=== PATIENT | female | born 1950 | race Caucasian/White ===

== ENCOUNTER 2025-03-06 21:50 | Emergency (ER) | payer MEDICARE, MEDICAID, SELFPAY ==
[2025-03-06 22:18] VITALS: BP 147/71; PULSE 62; RESP 18; TEMP 36.9; O2SAT 99
[2025-03-07 00:37] LABS: Basophils # 0.1 10^3/uL (0.0-0.1); Basophils % 0.7 %; Eosinophils # 0.1 10^3/uL (0.0-0.8); Eosinophils % 1.1 %; Hematocrit 41.4 % (36-47); Lymphocytes # 1.9 10^3/uL (0.8-4.8); Lymphocytes % 19.7 %; Mean Corpuscular HGB Conc 32.1 g/dL (30-55); Mean Corpuscular Hemoglobin 30.6 pg (27-33); Mean Corpuscular Volume 95.4 fl (85-98); Mean Platelet Volume 9.2 fL (7.4-10.4); Monocytes # 0.7 10^3/uL (0.2-0.9); Monocytes % 7.5 %; Neutrophils # 6.96 10^3/uL (1.8-7.7); Neutrophils % 70.5 %; Nucleated Red Blood Cells % 0 %; Platelet Count 327 10^3/cmm (157-399); Red Blood Count 4.34 10^6/uL (3.85-5.65); Red Cell Distribution Width 15.4 % (12.1-15.1); White Blood Count 9.87 10^3/uL (3.29-11.43)
--- NOTE | 2025-03-07 00:38 | XRR_ITS ---
PROCEDURE INFORMATION: Exam: XR Chest Exam date and time: 03/07/2025 12:50 AM Age: 75 years old Clinical indication: Shortness of breath; Prior surgery; Surgery date: 6+ months; Surgery type: Gb; C/O SOB. History of copd. TECHNIQUE: Imaging protocol: Radiologic exam of the chest. Views: 1 view. COMPARISON: CR XR chest 1V [id number] 10/19/2018 1:25 PM FINDINGS: Lungs: Unremarkable. No consolidation. Pleural spaces: Unremarkable. No pleural effusion. No pneumothorax. Heart/Mediastinum: Unremarkable. No cardiomegaly. Bones/joints: No fractures. 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 XR/XR chest 1V portable [id number] IMPRESSION: No acute findings.
[2025-03-07 00:42] LABS: Bacteria Urine None Seen /hpf; Hyaline Casts Urine 0-4 /lpf; RBC Urine 0-2 /hpf (0-2); Squamous Epithelial Cell Urine 0-5 /hpf (0-5); WBC Urine 0-5 /hpf (0-5)
[2025-03-07 00:55] VITALS: BP 169/84; PULSE 69; RESP 18; O2SAT 95
[2025-03-07 00:56] LABS: Add Urine Microscopic? YES; Bilirubin Urine Negative (Negative); Blood Urine Negative (Negative); Glucose Urine UA Negative (Normal); Ketones Urine Negative (Negative); Leukocyte Esterase Urine Trace (Negative); Nitrate Urine Negative (Negative); Protein Urine 1+ (Negative); Specific Gravity, Urine 1.018 (1.005-1.030); Urine Appearance Cloudy (CLEAR); Urine Color Yellow (Yellow); pH Urine 6.5 (5-7)
[2025-03-07 00:56] LABS: Alanine Aminotransferase 8 U/L (0-33); Alkaline Phosphatase 141 U/L (35-105); Anion Gap 13.1 (5-19); Aspartate Amino Transferase 13 U/L (0-32); Blood Urea Nitrogen 10 mg/dL (8-23); Calcium 9.9 mg/dL (8.5-10.5); Carbon Dioxide 22 mmol/L (22-29); Chloride 107 mmol/L (98-107); Creatinine Clr Calc Pharmacy 88.3556; Globulin 2.8 g/dL (1.3-4.6); Glucose 88 mg/dL (65-115); Osmolality Calculated 286 mOsm/kg (285-295); Potassium 3.1 mmol/L (3.5-5.1); Sodium 139 mmol/L (136-145); Total Bilirubin 0.4 mg/dL (0.15-1.2); Total Protein 6.8 g/dL (6.6-8.7)
--- NOTE | 2025-03-07 00:59 | W.ED.SOB ---
HPI - SOB/Dyspnea General: Chief Complaint: Shortness of Breath/Dyspnea Stated Complaint: LLQ Pain/ Back pain Time Seen by Provider: 03/07/25 00:38 Source: patient Mode of arrival: EMS Limitations: no limitations History of Present Illness: HPI Narrative: Patient is a 75-year-old female presents to ED today with 2 separate complaints. First of all she states my breathing is shot . States she has chronic COPD. She does not required oxygen. She has 2 different inhalers that she uses at home. She states over the past few days she has had increased cough and wheezing. She continues to smoke daily and has no intention of quitting. She is not having any chest pain. Her other complaint is some urinary incontinence. She reportedly started having loss a few weeks ago. She was told at some point that she had bacteria in her urine and was treated with antibiotics. She was also having some burning at that time but that has since subsided. She is not complaining of back pain. No recent injury or trauma. MD elicited complaint: shortness of breath Pertinent past history: COPD Onset (ago): day(s) Timing: constant Severity: moderate Relieving factors: nothing Known history of: COPD Associated symptoms: Reports chest congestion; Deny abdominal pain, chest pain, extremity pain, fever(s), hemoptysis or vomiting Treatment prior to arrival: none Related Data Home Medications ?Medication ?Instructions ?Recorded ?Confirmed cholecalciferol (vitamin D3) 25 25 mcg PO DAILY 06/18/21 09/22/24 mcg (1,000 unit) capsule diazepam 2 mg tablet 2 mg PO BID PRN 06/18/21 09/22/24 hydrochlorothiazide 50 mg tablet 50 mg PO DAILY 06/18/21 09/22/24 loratadine 10 mg tablet (Claritin) 10 mg PO DAILY 06/18/21 09/22/24 tramadol 50 mg tablet 50 mg PO Q6H PRN 06/18/21 09/22/24 ketotifen fumarate 0.025 % (0.035 1 drp ophthalmic (eye) BID 07/15/24 09/22/24 %) eye drops (Zaditor) Previous Rx's ?Medication ?Instructions ?Recorded budesonide 160 mcg-glycopyr 9 See Rx Instructions .Route 01/17/25 mcg-formot 4.8 mcg/actuation HFA .COMPLEX #10.7 grams inhaler (Breztri Aerosphere) metoprolol succinate 100 mg See Rx Instructions .Route 01/24/25 tablet,extended release 24 hr .COMPLEX #30 tabs esomeprazole magnesium 20 mg See Rx Instructions .Route 01/31/25 capsule,delayed release .COMPLEX #30 caps doxycycline monohydrate 100 mg 100 mg PO Q12H 10 days #20 caps 03/07/25 capsule prednisone 10 mg tablet 10 mg PO DAILY 6 days #20 tabs 03/07/25 Allergies Allergy/AdvReac Type Severity Reaction Status Date / Time MASOOD Inhibitors Allergy Severe Unknown Verified 03/06/25 22:25 Quinolones Allergy Mild Unknown Verified 03/06/25 22:25 Review of Systems Const: Denies: fever(s), chills, body aches, fatigue or malaise Card: Denies: chest pain Resp: Reports: dyspnea, productive cough, chest congestion and other (wheezing); Denies: hemoptysis GI: Denies: abdominal pain, vomiting or diarrhea : Reports: urinary incontinence; Denies: flank pain, difficulty voiding, dysuria, urinary frequency, urinary urgency or urinary hesitancy Musc: Denies: neck pain, back pain or extremity pain Skin/Breast: Denies: rash Neuro: Denies: headache(s) PFSH ED PFSH: Medical History Atrial fibrillation COPD (chronic obstructive pulmonary disease) Hypertension Hyperlipidemia Surgical History H/O shoulder surgery Hx of appendectomy History of cholecystectomy Tubal ligation status Family History Mother Diabetes Father Diabetes Brother Stroke Social History Smoking and tobacco/nicotine status: former use of tobacco/nicotine Quit status (tobacco/nicotine): not considering quitting Second hand smoke exposure: No Alcohol intake: never Substance/Drug Use: never Physical Exam Const: COMMON NORMALS: patient oriented x3, no limitations, alert and well nourished GENERAL APPEARANCE: cooperative NUTRITIONAL APPEARANCE: obese ORIENTATION/CONSCIOUSNESS: Yes awake, Yes oriented to person, Yes oriented to place and Yes oriented to time HENMT: COMMON NORMALS: normocephalic and atraumatic HEAD & SCALP: normal to inspection, normocephalic and atraumatic Eye: GENERAL EYE: appearance normal, both eyes and all related structures Neck/C-Spine: COMMON NORMALS: no lymphadenopathy GENERAL: Yes normal visual inspection Chest: COMMONS NORMALS: normal inspection of the chest and normal palpation of entire chest wall Resp: COMMON NORMALS: normal respiratory effort AUSCULTATION: wheezes Cardio: COMMON NORMALS: regular rate and regular rhythm RATE: regular rate RHYTHM: regular rhythm GI: COMMON NORMALS: Normal to inspection, nondistended, normoactive bowel sounds present, Soft to palpation and non-tender PALPATION: Yes Soft to palpation Back/Pelvis: COMMON NORMALS: thoracic and lumbar spine normal to inspection, no thoracic nor lumbar tenderness, thoraco-lumbar ROM normal and straight leg raise negative bilaterally Extremity: NARRATIVE EXTREMITY EXAM: mild LE [id number] been told she might benefit from water pill but states she already has a hard time getting to the bathroom and has declined these in the past Neuro: COMMON NORMALS: patient oriented x3, moves all extremities, no focal motor deficits and no sensory deficits noted SENSORIUM/ORIENTATION: Yes alert, Yes oriented to person, Yes oriented to place and Yes oriented to time Skin: COMMON NORMALS: no rashes or lesions noted GENERAL SKIN EXAM: no rashes or lesions noted Course Vital Signs: Vital signs: Vital Signs Temperature 98.4 F 03/06/25 22:18 Pulse Rate 62 03/06/25 22:18 Respiratory Rate 18 03/06/25 22:18 Blood Pressure 147/71 03/06/25 22:18 Pulse Oximetry 99 03/06/25 22:18 Oxygen Delivery Me thod Room Air 03/06/25 22:18 MDM - SOB/Dyspnea Medical Decision Making Patient clinically appears no acute distress. Her vital signs are stable. She is not tachycardic, febrile, or hypoxic. CXR showing no acute findings. Her white count is normal. At this time patient does not require hospitalization. She appears improved after IV Solu-Medrol and DuoNeb breathing treatment. I will call her in antibiotics and steroids for treatment of a COPD exacerbation. Discussed following up with her primary care provider in regards to her urinary incontinence and discussed possible urology referral. Differential Diagnosis Likely acute exacerbation of chronic obstructive airways disease Medical Records I reviewed the patient's medical records. Lab Data I reviewed the patient's lab results. 03/06/25 00:30 03/06/25 00:30 Labs/Radiology: Radiology Impressions Chest X-Ray 03/07/25 00:38 IMPRESSION: No acute findings. Laboratory Results WBC 9.87 10^3/uL (3.29-11.43) 03/06/25 00:30 RBC 4.34 10^6/uL (3.85-5.65) 03/06/25 00:30 Hgb 13.30 g/dL (11.27-16.99) 03/06/25 00:30 Hct 41.4 % (36-47) 03/06/25 00:30 MCV 95.4 fl (85-98) 03/06/25 00:30 MCH 30.6 pg (27-33) 03/06/25 00:30 MCHC 32.1 g/dL (30-55) 03/06/25 00:30 RDW 15.4 % (12.1-15.1) H 03/06/25 00:30 Plt Count 327 10^3/cmm (157-399) 03/06/25 00:30 MPV 9.2 fL (7.4-10.4) 03/06/25 00:30 Neut % (Auto) 70.5 % 03/06/25 00:30 Lymph % (Auto) 19.7 % 03/06/25 00:30 [place] % (Auto) 7.5 % 03/06/25 00:30 Eos % (Auto) 1.1 % 03/06/25 00: Baso % (Auto) 0.7 % 03/06/25 00:30 Neut # (Auto) 6.96 10^3/uL (1.8-7.7) 03/06/25 00:30 Lymph # (Auto) 1.9 10^3/uL (0.8-4.8) 03/06/25 00:30 [place] # (Auto) 0.7 10^3/uL (0.2-0.9) 03/06/25 00:30 Eos # (Auto) 0.1 10^3/uL (0.0-0.8) 03/06/25 00:30 Baso # (Auto) 0.1 10^3/uL (0.0-0.1) 03/06/25 Nucleated RBC % (auto) 0 % 03/06/25 Nucleated RBCs # 0.0 /100WBC 03/06/25 Sodium 139 mmol/L (136-145) 03/06/25 00: Potassium 3.1 mmol/L (3.5-5.1) L 03/06/25 Chloride 107 mmol/L (98-107) 03/06/25 Carbon Dioxide 22 mmol/L (22-29) 03/06/25 Anion Gap 13.1 (5-19) 03/06/25 BUN 10 mg/dL (8-23) 03/06/25 Creatinine 0.8 mg/dL (0.5-0.9) 03/06/25 GFR Calculation Not Reportable 03/06/25 Glucose 88 mg/dL (65-115) 03/06/25 Calculated Osmolality 286 mOsm/kg (285-295) 03/06/25 Calcium 9.9 mg/dL (8.5-10.5) 03/06/25 Total Bilirubin 0.4 mg/dL (0.15-1.2) 03/06/25 AST 13 U/L (0-32) 03/06/25 ALT 8 U/L (0-33) 03/06/25 Alkaline Phosphatase 141 U/L (35-105) H 03/06/25 NT-Pro-B Natriuret Pep 667 pg/mL (0-125) H 03/07/25: Total Protein 6.8 g/dL (6.6-8.7) 03/06/25: Albumin 4.0 g/dL (3.5-5.2) 03/06/25 Globulin 2.8 g/dL (1.3-4.6) 03/06/25 00: Urine Color Yellow (Yellow) 03/07/25 Urine Appearance Cloudy (CLEAR) A 03/07/25: Urine pH 6.5 (5-7) 03/07/25 Ur Specific [place] 1.018 (1.005-1.030) 03/07/25 00:27 Urine Protein 1+ (Negative) A 03/07/25 00:27 Urine Glucose (UA) Negative (Normal) 03/07/25 00:27 Urine Ketones Negative (Negative) 03/07/25 00:27 Urine Blood Negative (Negative) 03/07/25 00:27 Urine Nitrate Negative (Negative) 03/07/25 00:27 Urine Bilirubin Negative (Negative) 03/07/25 00: Urine Urobilinogen 1.0 mg/dL (Negative) 03/07/25 00:27 Ur Leukocyte Esterase Trace (Negative) A 03/07/25 00:27 Urine RBC 0-2 /hpf (0-2) 03/07/25 00:27 Urine WBC 0-5 /hpf (0-5) 03/07/25 00:27 Ur Squamous Epith Cells 0-5 /hpf (0-5) 03/07/25 00:27 Amorphous Sediment Not Reportable 03/07/25 00:27 Urine Bacteria None seen /hpf (NONE) 03/07/25 00:27 Hyaline Casts 0-4 /lpf H 03/07/25 00:27 All radiology interpretation(s) finalized by discharge Discharge Plan Discharge Patient Disposition: Home Clinical Impression: COPD with acute exacerbation, Urinary incontinence Condition: Stable Prescriptions: New prednisone 10 mg tablet 10 mg PO DAILY 6 Days Qty: 20 0RF Rx Instructions: Take 5 tabs on day 1-2, 4 tabs on day 3, 3 tabs on day 4, 2 tabs on day 5, and 1 tab on day 6 doxycycline monohydrate 100 mg capsule 100 mg PO Q12H 10 Days Qty: 20 0RF No Action cholecalciferol (vitamin D3) 25 mcg (1,000 unit) capsule 25 mcg PO DAILY hydrochlorothiazide 50 mg tablet 50 mg PO DAILY loratadine [Claritin] 10 mg tablet 10 mg PO DAILY diazepam 2 mg tablet 2 mg PO BID PRN tramadol 50 mg tablet 50 mg PO Q6H PRN ketotifen fumarate [Zaditor] 0.025 % (0.035 %) drops 1 drp ophthalmic (eye) BID Rx Instructions: administer at least 8 hours apart Breztri Aerosphere 160-9-4.8 mcg/actuation HFA aerosol inhaler See Rx Instructions .ROUTE .COMPLEX Qty: 10.7 3RF Dose Instruction: INHALE 2 PUFFS BY MOUTH TWICE DAILY Rx Instructions: INHALE 2 PUFFS BY MOUTH TWICE DAILY metoprolol succinate 100 mg tablet extended release 24 hr See Rx Instructions .ROUTE .COMPLEX Qty: 30 3RF Dose Instruction: TAKE ONE TABLET BY MOUTH ONCE DAILY Rx Instructions: TAKE ONE TABLET BY MOUTH ONCE DAILY esomeprazole magnesium 20 mg capsule,delayed release(DR/EC) See Rx Instructions .ROUTE .COMPLEX Qty: 30 3RF Dose Instruction: TAKE ONE CAPSULE BY MOUTH ONCE DAILY Rx Instructions: TAKE ONE CAPSULE BY MOUTH ONCE DAILY Discharge Orders: Discharge ED (Routine); Ordered 03/07/25 Ordered By: Sarah Rocha Referrals: Ludwin Onofre MD [Primary Care Provider] - Patient Instructions: COPD (Chronic Obstructive Pulmonary Disease) (DC), Urinary Incontinence Activity Restrictions/Additional Instructions: As we discussed, we will place you on antibiotics and steroids to help with your breathing. Continue your inhaled treatments at home. Please follow-up with primary care this week for re-evaluation. I would like for you to speak to them regarding your urinary incontinence. Print Language: Sinhala Coding Level of Care Code ED Noodle Maker for Molly Bethea
[2025-03-07 01:00] VITALS: PULSE 71; RESP 17; O2SAT 98
[2025-03-07 01:12] LABS: Add Urine Culture? No
[2025-03-07 01:30] VITALS: BP 169/84; PULSE 69; RESP 18; O2SAT 95
[2025-03-07] MEDS: methylPREDNISolone sod succ 125 mg/2 mL INJ IVP (01:34)
[2025-03-07 01:53] LABS: NT Pro B Type Natriuretic Pept 667 pg/mL (0-125)
[2025-03-07 02:30] VITALS: BP 168/97; PULSE 64; RESP 25; O2SAT 95
[2025-03-07 04:58] VITALS: BP 151/71; PULSE 74; O2SAT 96
== END 2025-03-07 05:00 | disposition home or self-care (01) ==
PROVIDERS: Emergency Medicine; Emergency Provider Physician Assistant; PCP Family Medicine
DX: J44.1 Chronic obstructive pulmonary disease with (acute) exacerbation (principal); R32 Unspecified urinary incontinence; Z87.891 Personal history of nicotine dependence; J44.9 Chronic obstructive pulmonary disease, unspecified; I10 Essential (primary) hypertension; E78.5 Hyperlipidemia, unspecified
CPT/HCPCS: 36415; 71045; 80053; 81001; 83880; 85025; 96374; 99284; J2919

== ENCOUNTER → 2025-07-28 12:53 | Outpatient (BNVA) | payer MEDICARE, MEDICAID, SELFPAY | PROVIDERS: PCP Family Medicine; Visit Provider Nurse Practitioner Family | DX: N39.0 Urinary tract infection, site not specified (principal); R32 Unspecified urinary incontinence | CPT/HCPCS: 81000; 87086 ==